=== PATIENT | female | born 1980 | race Caucasian/White ===

== ENCOUNTER 2022-04-26 16:53 | Outpatient (CLI) | payer BC, SELFPAY ==
--- NOTE | 2022-04-26 17:15 | CRLHL7_ITS ---
For Patients: As a result of the Cures Act, medical imaging exams and procedure reports are released immediately into your electronic medical record. You may view this report before your referring provider. If you have questions, please contact your health care provider. BILATERAL SCREENING MAMMOGRAM WITH COMPUTER-AIDED DETECTION AND TOMOSYNTHESIS TECHNIQUE: CC and MLO views were obtained. These mammographic images have been obtained using full-field digital technique. These mammographic images were interpreted with the benefit of computer-aided detection. Breast Tomosynthesis was used in this interpretation. COMPARISON FILM: Baseline. FINDINGS: The breasts are heterogeneously dense, which may obscure small masses. IMPRESSION: There is no radiographic evidence for malignancy. ASSESSMENT: BI-RADS Category 1: Negative RECOMMENDATION: Routine screening mammogram in 1 year. A lay language report of this examination will be provided to the patient. Jam Gonzalez M.D. Diagnostic/Nuclear Medicine Radiologist [email or web address] TEDDY:earl Transcribed: 11:06 a.m. PT/Dictated by: Jam Gonzalez MD @ 04/27/2022 9:13:00 AM (Electronically Signed)
== END 2022-04-26 16:54 | disposition home or self-care (01) ==
LOC: MAMMO 16:54
PROVIDERS: Visit Provider Registered Nurse
DX: Z12.31 Encounter for screening mammogram for malignant neoplasm of breast (principal)
CPT/HCPCS: 77063; 77067

== ENCOUNTER 2023-01-16 14:11 | Outpatient (CLI) | payer BC, SELFPAY ==
[2023-01-16 22:42] LABS: SARS PCR* POSITIVE SARS-CoV-2 (Negative)
== END 2023-01-16 14:12 | disposition home or self-care (01) ==
LOC: KYNREF 14:11
PROVIDERS: PCP Obstetrics & Gynecology; Visit Provider Nurse Practitioner Family
DX: J11.1 Influenza due to unidentified influenza virus with other respiratory manifestations (principal)
CPT/HCPCS: 87635

== ENCOUNTER 2023-03-16 09:47 | Outpatient (CLI) | payer BC, SELFPAY | END 2023-03-16 09:48 | disposition home or self-care (01) | LOC: NFLDREF 03-18 20:53 | PROVIDERS: PCP Obstetrics & Gynecology; Referring Provider Registered Nurse; Visit Provider Nurse Practitioner Family | DX: F41.0 Panic disorder [episodic paroxysmal anxiety] (principal); Z79.899 Other long term (current) drug therapy; F41.8 Other specified anxiety disorders | CPT/HCPCS: 80053; 82306; 84443 ==

== ENCOUNTER 2023-08-31 15:30 | Outpatient (CLI) | payer BC, SELFPAY ==
--- NOTE | 2023-08-31 15:30 | XR_ITS ---
Patient: ROSS AVILA Facility:?[facility] Patient ID:?[id number] Site Patient ID:?[id number]. Site :?[id number] Study:?DEXA-Bone Density -08/31/2023 3:59:27 PM Ordering Physician:SALVADOR Final Report: DXA BONE MINERAL DENSITY STUDY Reason for exam: Osteopenia. Current height (in): 67.0. Weight (lb): 143.0. Menopause age: 43. Ethnicity: White. 1. Have you had a previous hip or vertebral fracture? No. 2. Have you had any fractures during your adult life which did not result from significant trauma (e.g., auto accident)? No. 3. Did either of your parents have a hip fracture? No. 4. Do you smoke? No. 5. Have you ever taken Glucocorticoids? No. 6. Do you have rheumatoid arthritis? No. 7. Do you have secondary osteoporosis? No. 8. Do you drink 3 or more alcoholic drinks per day? No. 9. Are you being treated for osteoporosis? No. 10. Have you ever taken any of the following medications: Actonel, Evista, Fosamax, Miacalcin, Reclast, Boniva, Forteo, HRT (i.e. estrogen/hormone therapy), Protelos, Prolia, Vitamin D, Calcium, other ? please specify. ANSWER: Yes, vitamin D, calcium, hormone replacement therapy 11. Do you have any of the following medical conditions: Anorexia or bulimia, asthma or emphysema, end stage renal disease, hyperparathyroidism, any seizure disorders, cancer, inflammatory bowel diseases, hysterectomy, other ? please specify. ANSWER: Yes, asthma or emphysema. 12. What was your maximum height (inches)? 67. 13. Do you perform weight bearing exercise regularly? No. 14. Do you regularly consume dairy products? Yes. 15. Do you drink caffeinated beverages? Yes. 16. At what age did your period start? 18. 17. Are you premenopausal? No. 18. How many full term pregnancies have you had? 1. 19. Have you ever missed your period for more than 6 months in a row (not including or menopause)? Yes. TECHNIQUE: Bone mineral density study was performed using the [employer]. FINDINGS: The results of the study expressed as bone mineral density (BMD) are as follows: Lumbar spine L1 to L3: BMD: 0.927 g/cm2. T-score: -0.8. Z-score: -0.6. Neck Left: BMD: 0.697 g/cm2. T-score: -1.4. Z-score: -1.0. Right: BMD: 0.610 g/cm2. T-score: -2.2. Z-score: -1.8. Total Left: BMD: 0.784 g/cm2. T-score: -1.3. Z-score: -1.1. Right: BMD: 0.761 g/cm2. T-score: -1.5. Z-score: -1.3. IMPRESSION: Osteopenia. FRAX 10-year Fracture Risk Major Osteoporotic Fracture: 3.0 percent Hip Fracture: 0.6 percent Reported Risk Factors: [place] () Neck BMD=0.610, BMI=22.4 Dale Love M.D. Diagnostic Radiologist [email or web address] SOLEDAD/sandra / be/Dictated by: Dale Love MD @ 09/01/2023 1:44:00 PM Signed by:?Dale Love MD @09/01/2023 3:31:29 PM (Electronic Signature)
== END 2023-08-31 15:31 | disposition home or self-care (01) ==
LOC: RAD 15:30
PROVIDERS: PCP Nurse Practitioner Family; Visit Provider Nurse Practitioner Family
DX: M85.80 Other specified disorders of bone density and structure, unspecified site (principal); M85.88 Other specified disorders of bone density and structure, other site; E28.39 Other primary ovarian failure
CPT/HCPCS: 77080

== ENCOUNTER 2023-10-03 18:48 | Outpatient (CLI) | payer BC, SELFPAY ==
--- NOTE | 2023-10-03 19:00 | MM_ITS ---
Patient: ROSS AVILA Facility:?[facility] Patient ID:?[id number] Site Patient ID:?[id number]. Site :?[id number] Study:?XRay-Breast Bilateral 3D screening mammogram w/cad-10/03/2023 7:14:04 PM Ordering Physician:Debbie Final Report: BILATERAL SCREENING MAMMOGRAM WITH COMPUTER-AIDED DETECTION AND TOMOSYNTHESIS TECHNIQUE: CC and MLO views were obtained. These mammographic images have been obtained using full-field digital technique. These mammographic images were interpreted with the benefit of computer-aided detection. Breast Tomosynthesis was used in this interpretation. COMPARISON FILM: 04/26/22. FINDINGS: There are scattered areas of fibroglandular density. IMPRESSION: There is no radiographic evidence for malignancy. ASSESSMENT: BI-RADS Category 1: Negative RECOMMENDATION: Routine screening mammogram in 1 year. A lay language report of this examination will be provided to the patient. Dale Love M.D. Diagnostic Radiologist [email or web address] DSM/sp R& Transcribed: 3:20 p.m. SP/Dictated by: Dale Love MD @ 10/09/2023 12:51:00 PM Signed by:?Dale Love MD @10/09/2023 4:00:59 PM (Electronic Signature)
== END 2023-10-03 18:49 | disposition home or self-care (01) ==
LOC: MAMMO 18:48
PROVIDERS: PCP Nurse Practitioner Family; Visit Provider Nurse Practitioner Family
DX: Z12.31 Encounter for screening mammogram for malignant neoplasm of breast (principal)
CPT/HCPCS: 77063; 77067

== ENCOUNTER 2025-01-23 14:40 | Outpatient (CLI) | payer BC, SELFPAY ==
--- NOTE | 2025-01-23 14:40 | CRLHL7_ITS ---
For Patients: As a result of the Century Cures Act, medical imaging exams and procedure reports are released immediately into your electronic medical record. You may view this report before your referring provider. If you have questions, please contact your health care provider. INDICATION: BILATERAL SCREENING MAMMOGRAM, ASYMPTOMATIC 44 Y/O FEMALE COMPARISON: 10/03/2023, 04/26/2022 TECHNIQUE: Digital mammogram in CC and MLO projections including computer-aided detection (CAD) and tomosynthesis. BREAST COMPOSITION: There are scattered areas of fibroglandular density. FINDINGS: No suspicious findings. ASSESSMENT: BI-RADS 1 Negative RECOMMENDATION: Annual screening mammogram. A lay language report of this examination will be provided to the patient. Dictated by: Dale Love MD @ 01/24/2025 09:50:21 (Electronically Signed)
== END 2025-01-23 14:41 | disposition home or self-care (01) ==
LOC: MAMMO 14:40
PROVIDERS: PCP Nurse Practitioner Family; Visit Provider Nurse Practitioner Family
DX: Z12.31 Encounter for screening mammogram for malignant neoplasm of breast (principal)
CPT/HCPCS: 77063; 77067